=== PATIENT | female | born 1960 | race Caucasian/White ===

== ENCOUNTER 2023-02-01 02:44 | Emergency (ER) | payer MEDICAID, MEDICARE ==
[~2023-02-01] VITALS: Ht 167.6 cm; Wt 85.0 kg
[2023-02-01] MEDS ORDERED: LORAZEPAM 2MG/ML CPJ IV STA (07:22)
[2023-02-01] MEDS ORDERED: SODIUM CHLORIDE 0.9% 1,000 ML IV ONE (07:30)
[2023-02-01] MEDS ORDERED: DIPHENHYDRAMINE 50MG/ML VIAL IM ONE (07:45)
[2023-02-01] MEDS ORDERED: HALOPERIDOL LACTATE 5MG/ML VIAL IM ONE (07:45)
[2023-02-01] MEDS ORDERED: LORAZEPAM 2MG/ML CPJ IM ONE (07:45)
[2023-02-01 10:23] LABS: BASOPHILS % 0.6 % (0.0-2.0); EOSINOPHILS % 1.5 % (0.0-5.0); HEMATOCRIT. 42.5 % (36.0-48.0); HEMOGLOBIN. 13.7 g/dL (12.0-16.0); MEAN CORPUSCULAR HEMOGLOBIN 26.8 pg (28.0-32.0); MEAN CORPUSCULAR VOLUME 83.4 fL (81.0-99.0); MEAN PLATELET VOLUME 8.1 fl (7.4-10.4); MONOCYTES % 6.2 % (2.0-8.0); NEUTROPHILS % 73.7 % (40.0-76.0); PLATELET 355 x1000/uL (130-400); RED CELL DISTRIBUTION WIDTH 14.1 % (11.6-14.6)
[2023-02-01 10:36] LABS: CHLORIDE 109 mEq/L (98-107)
[2023-02-01 10:43] LABS: ETHANOL BLOOD < 10 mg/dL
[2023-02-01 10:44] LABS: CLARITY URINE CLEAR (CLEAR); COLOR URINE DARK YELLOW (YELLOW); KETONES URINE TRACE (NEGATIVE); LEUKOCYTE ESTERASE URINE 2+ (NEGATIVE); NITRITE URINE NEGATIVE (NEGATIVE); OCCULT BLOOD URINE NEGATIVE (NEGATIVE); PROTEIN URINE TRACE (NEGATIVE); SPECIFIC GRAVITY URINE 1.034 (1.005-1.030)
[2023-02-01 11:11] LABS: *AMPHETAMINES SCREEN URINE PRESUMTIVE POSITIVE (NEGATIVE); *BARBITURATES SCREEN URINE NEGATIVE (NEGATIVE); *BENZODIAZEPINES SCREEN URINE NEGATIVE (NEGATIVE); *COCAINE SCREEN URINE NEGATIVE (NEGATIVE); CANNABINOID URINE SCREEN PRESUMTIVE POSITIVE (NEGATIVE); METHADONE URINE SCREEN NEGATIVE (NEGATIVE); OPIATES URINE SCREEN NEGATIVE (NEGATIVE); PHENCYCLIDINE URINE SCREEN PRESUMTIVE POSITIVE (NEGATIVE)
[2023-02-02 14:00] VITALS: BP 136/72
== END 2023-02-02 14:20 | disposition home or self-care (01) ==
LOC: ER 03:08
DX: G92.9 Unspecified toxic encephalopathy (principal); F29 Unspecified psychosis not due to a substance or known physiological condition; F22 Delusional disorders; F19.10 Other psychoactive substance abuse, uncomplicated; R45.851 Suicidal ideations; F17.210 Nicotine dependence, cigarettes, uncomplicated; Z20.822 Contact with and (suspected) exposure to COVID-19
CPT/HCPCS: 36415; 80053; 80305; 80307; 80320; 80329; 81003; 85025; 87426; 96360; 96361; 96372; 99285; C9803; J1200; J1630; J2060; J7030; Z7610; G0480

== ENCOUNTER 2023-02-02 21:56 | Emergency (ER) | payer MEDICAID ==
[~2023-02-02] VITALS: Ht 162.6 cm; Wt 91.0 kg
[2023-02-02 22:07] VITALS: BP 129/53
== END 2023-02-02 23:08 | disposition home or self-care (01) ==
LOC: ER 21:56
DX: F41.9 Anxiety disorder, unspecified (principal); J45.909 Unspecified asthma, uncomplicated; Z59.00 Homelessness unspecified; Z86.11 Personal history of tuberculosis
CPT/HCPCS: 99283

== ENCOUNTER 2023-02-03 00:20 | Emergency (ER) | payer MEDICAID ==
[~2023-02-03] VITALS: Ht 154.9 cm; Wt 98.9 kg
[2023-02-03 00:27] VITALS: BP 118/45
[2023-02-03] MEDS ORDERED: LORAZEPAM 1MG TABLET PO ONE (05:30)
== END 2023-02-03 09:24 | disposition home or self-care (01) ==
LOC: ER 00:20
DX: F41.9 Anxiety disorder, unspecified (principal); J45.909 Unspecified asthma, uncomplicated; F15.10 Other stimulant abuse, uncomplicated
CPT/HCPCS: 99283

== ENCOUNTER 2023-09-12 22:23 | Emergency (ER) | payer OTHER ==
[~2023-09-12] VITALS: Ht 170.2 cm; Wt 85.0 kg
[2023-09-12] MEDS ORDERED: LORAZEPAM 1MG TABLET PO NR (22:45)
[2023-09-13 00:17] LABS: BASOPHILS % 0.4 % (0.0-2.0); DIFFERENTIAL COMMENT 1; EOSINOPHILS % 0.4 % (0.0-5.0); HEMATOCRIT. 38.4 % (36.0-48.0); HEMOGLOBIN. 12.3 g/dL (12.0-16.0); LYMPHOCYTES % 14.5 % (20.0-50.0); MEAN CORPUSCULAR HEMOGLOBIN 26.7 pg (28.0-32.0); MEAN CORPUSCULAR HGB CONC 31.9 g/dL (31.0-37.0); MEAN CORPUSCULAR VOLUME 83.7 fL (81.0-99.0); MEAN PLATELET VOLUME 7.4 fl (7.4-10.4); MONOCYTES % 6.7 % (2.0-8.0); PLATELET 277 x1000/uL (130-400); RED BLOOD CELL COUNT 4.59 mill/uL (4.2-5.4); WHITE BLOOD COUNT 13.9 x1000/uL (4.5-11.0)
[2023-09-13 00:22] LABS: CHLORIDE 111 mEq/L (98-107); INDEX HEMOLYSI 1 (1-3); INDEX ICTERIC 1 (1-4); INDEX LIPEMIC 1 (1-3); POTASSIUM 3.6 mEq/L (3.5-5.1); SODIUM 141 mEq/L (136-145)
[2023-09-13 00:31] LABS: ACETAMINOPHEN <2 ug/mL ug/mL (10-30); ALANINE AMINOTRANSFERASE 34 IU/L (13-61); ALBUMIN 3.9 g/dL (3.4-5.0); ASPARTATE AMINOTRANSFERASE 38 IU/L (15-37); BILIRUBIN TOTAL 0.5 mg/dL (0.1-1.0); CALCIUM 8.7 mg/dL (8.5-10.1); CARBON DIOXIDE 24 mEq/L (21-32); CREATININE 0.8 mg/dL (0.6-1.3); ETHANOL BLOOD < 10 mg/dL (<10); GLUCOSE 87 mg/dL (70-105); PROTEIN TOTAL 7.5 g/dL (6.0-8.3); UREA NITROGEN BLOOD 21 mg/dL (7-21)
[2023-09-13] MEDS ORDERED: BACITRACIN 14GM TUBE TOP NR (01:45)
[2023-09-13] MEDS ORDERED: HALOPERIDOL LACTATE 5MG/ML VIAL IM ONE (04:30)
[2023-09-13] MEDS ORDERED: DIPHENHYDRAMINE 50MG/ML VIAL IM ONE (04:30)
[2023-09-13 11:30] VITALS: BP 142/80; PULSE 80; RESP 16; TEMP 98.5
== END 2023-09-13 13:46 | disposition home or self-care (01) ==
LOC: ER 23:26
DX: F29 Unspecified psychosis not due to a substance or known physiological condition (principal); S50.311A Abrasion of right elbow, initial encounter; F17.200 Nicotine dependence, unspecified, uncomplicated; F15.10 Other stimulant abuse, uncomplicated; Z00.00 Encounter for general adult medical examination without abnormal findings; X58.XXXA Exposure to other specified factors, initial encounter; Y93.89 Activity, other specified; Y92.89 Other specified places as the place of occurrence of the external cause; Y99.8 Other external cause status
CPT/HCPCS: 80053; 80307; 80329; 80320; 85025; 36415; 99285; 96372; J1200; J1630; G0480

== ENCOUNTER 2023-09-13 17:21 | Emergency (ER) | payer OTHER ==
[~2023-09-13] VITALS: Ht 165.1 cm; Wt 91.0 kg
[2023-09-13 17:24] VITALS: BP 152/87; PULSE 104; RESP 18; TEMP 98.5; O2SAT 99
== END 2023-09-13 20:57 | disposition left against medical advice (07) ==
LOC: ER 17:50
DX: R21 Rash and other nonspecific skin eruption (principal); Z53.21 Procedure and treatment not carried out due to patient leaving prior to being seen by health care provider
CPT/HCPCS: 99281

== ENCOUNTER 2024-03-19 05:42 | Emergency (ER) | payer MEDICARE, OTHER ==
[~2024-03-19] VITALS: Ht 165.1 cm; Wt 89.0 kg
[2024-03-19 05:49] VITALS: O2SAT 100
[2024-03-19] MEDS: OLANZAPINE 10 MG/VIAL IM STA (07:12)
[2024-03-19 08:30] LABS: CHLORIDE 109 mEq/L (98-107); POTASSIUM 3.7 mEq/L (3.5-5.1); SODIUM 139 mEq/L (136-145)
[2024-03-19 08:31] LABS: CALCIUM 9.7 mg/dL (8.7-10.4); CARBON DIOXIDE 23 mEq/L (21-32)
[2024-03-19 08:35] LABS: CREATININE 0.7 mg/dL (0.6-1.0)
[2024-03-19 08:36] LABS: GLUCOSE 106 mg/dL (70-105); UREA NITROGEN BLOOD 16 mg/dL (9-23)
[2024-03-19 08:41] LABS: ETHANOL BLOOD < 10 mg/dL (<10); THYROID STIMULATING HORMONE 1.85 uIU/mL (0.55-4.78)
[2024-03-19 08:47] LABS: BASOPHILS % 1.2 % (0.0-2.0); EOSINOPHILS % 0.8 % (0.0-5.0); HEMATOCRIT. 41.6 % (36.0-48.0); HEMOGLOBIN. 13.5 g/dL (12.0-16.0); LYMPHOCYTES % 15.3 % (20.0-50.0); MEAN CORPUSCULAR HEMOGLOBIN 27.4 pg (28.0-32.0); MEAN CORPUSCULAR HGB CONC 32.4 g/dL (31.0-37.0); MEAN CORPUSCULAR VOLUME 84.6 fL (81.0-99.0); MEAN PLATELET VOLUME 7.7 fl (7.4-10.4); MONOCYTES % 5.7 % (2.0-8.0); PLATELET 296 x1000/uL (130-400); RED BLOOD CELL COUNT 4.92 mill/uL (4.2-5.4); RED CELL DISTRIBUTION WIDTH 13.8 % (11.6-14.6); WHITE BLOOD COUNT 13.5 x1000/uL (4.5-11.0)
[2024-03-19] MEDS: DIPHENHYDRAMINE 50MG/ML VIAL IM STA (10:11)
[2024-03-19] MEDS: LORAZEPAM 2MG/ML INJ IM ONE (10:12)
[2024-03-19] MEDS: HALOPERIDOL LACTATE 5MG/ML VIAL IM ONE (10:13)
[2024-03-19] MEDS: DIPHENHYDRAMINE 50MG/ML VIAL IM NR (15:00)
[2024-03-19] MEDS: LORAZEPAM 2MG/ML INJ IM NR (15:00)
[2024-03-19] MEDS: HALOPERIDOL LACTATE 5MG/ML VIAL IM NR (17:00)
[2024-03-20 10:30] VITALS: BP 137/72; PULSE 72; RESP 18; TEMP 98.6
== END 2024-03-20 11:00 ==
LOC: ER 05:42
DX: R41.82 Altered mental status, unspecified (principal); R45.1 Restlessness and agitation; F15.10 Other stimulant abuse, uncomplicated; Z20.822 Contact with and (suspected) exposure to COVID-19
CPT/HCPCS: 80048; 80307; 80329; 80320; 84443; 85025; 36415; 96372; 99285; 87426; J3490; J1200; J1630; J2060; Z7610 ×4; G0480

== ENCOUNTER 2024-04-01 14:40 | Emergency (ER) | payer MEDICARE ==
[~2024-04-01] VITALS: Ht 167.6 cm; Wt 80.0 kg
[2024-04-01] MEDS: DIPHENHYDRAMINE 50MG/ML VIAL IM STA (16:37)
[2024-04-01] MEDS: LORAZEPAM 2MG/ML INJ IM ONE (16:37)
[2024-04-01] MEDS: HALOPERIDOL LACTATE 5MG/ML VIAL IM ONE (16:37)
[2024-04-01 17:45] VITALS: O2SAT 98
[2024-04-01 19:41] LABS: BASOPHILS % 0.6 % (0.0-2.0); EOSINOPHILS % 1.5 % (0.0-5.0); HEMATOCRIT. 40.2 % (36.0-48.0); HEMOGLOBIN. 12.7 g/dL (12.0-16.0); LYMPHOCYTES % 25.9 % (20.0-50.0); MEAN CORPUSCULAR HEMOGLOBIN 27.5 pg (28.0-32.0); MEAN CORPUSCULAR HGB CONC 31.7 g/dL (31.0-37.0); MEAN CORPUSCULAR VOLUME 86.8 fL (81.0-99.0); MEAN PLATELET VOLUME 7.7 fl (7.4-10.4); MONOCYTES % 10.3 % (2.0-8.0); NEUTROPHILS % 61.7 % (40.0-76.0); PLATELET 294 x1000/uL (130-400); RED BLOOD CELL COUNT 4.63 mill/uL (4.2-5.4); RED CELL DISTRIBUTION WIDTH 14.1 % (11.6-14.6); WHITE BLOOD COUNT 13.3 x1000/uL (4.5-11.0)
[2024-04-01 19:45] LABS: CHLORIDE 111 mEq/L (98-107); POTASSIUM 4.3 mEq/L (3.5-5.1); SODIUM 143 mEq/L (136-145)
[2024-04-01 19:46] LABS: CARBON DIOXIDE 27 mEq/L (21-32)
[2024-04-01 19:51] LABS: CREATININE 0.7 mg/dL (0.6-1.0); ETHANOL BLOOD < 10 mg/dL (<10); GLUCOSE 85 mg/dL (70-105); UREA NITROGEN BLOOD 13 mg/dL (9-23)
[2024-04-01 19:53] LABS: ACETAMINOPHEN < 2 ug/mL (10-30)
[2024-04-02 01:14] LABS: CLARITY URINE CLEAR (CLEAR); COLOR URINE YELLOW (YELLOW); GLUCOSE URINE NEGATIVE (NEGATIVE); KETONES URINE 1+ (NEGATIVE); LEUKOCYTE ESTERASE URINE NEGATIVE (NEGATIVE); NITRITE URINE NEGATIVE (NEGATIVE); OCCULT BLOOD URINE NEGATIVE (NEGATIVE); PROTEIN URINE NEGATIVE (NEGATIVE); SPECIFIC GRAVITY URINE 1.023 (1.005-1.030)
[2024-04-02 01:21] LABS: *AMPHETAMINES SCREEN URINE PRESUMPTIVE POSITIVE (NEGATIVE)
[2024-04-02 01:22] LABS: *BARBITURATES SCREEN URINE NEGATIVE (NEGATIVE); *BENZODIAZEPINES SCREEN URINE NEGATIVE (NEGATIVE); *COCAINE SCREEN URINE NEGATIVE (NEGATIVE); CANNABINOID URINE SCREEN PRESUMPTIVE POSITIVE (NEGATIVE); ECSTASY MDMA SCREEN URINE NEGATIVE (NEGATIVE); METHADONE URINE SCREEN NEGATIVE (NEGATIVE); OPIATES URINE SCREEN NEGATIVE (NEGATIVE); PHENCYCLIDINE URINE SCREEN PRESUMTIVE POSITIVE (NEGATIVE)
[2024-04-02] MEDS: OLANZAPINE 5MG TABLET ODT PO SCH (18:02)
[2024-04-03] MEDS: OLANZAPINE 10 MG/VIAL IM ONE (08:31)
[2024-04-03] MEDS: LORAZEPAM 2MG/ML INJ IM ONE (08:31)
[2024-04-03 16:26] VITALS: BP 140/82; PULSE 80; RESP 14; TEMP 98.2
== END 2024-04-03 17:05 ==
LOC: ER 14:40
DX: R44.0 Auditory hallucinations (principal); Z20.822 Contact with and (suspected) exposure to COVID-19
CPT/HCPCS: 80305; 80048; 81003; 81025; 80307; 80329; 80320; 85025; 36415; 96372; 99291; 87426; J1200; J1630; J2060 ×2; Z7610 ×3; J3490; 99285; G0480

== ENCOUNTER 2024-07-27 20:22 | Emergency (ER) | payer MEDICARE ==
[~2024-07-27] VITALS: Ht 162.6 cm; Wt 73.0 kg
[2024-07-27 20:25] VITALS: BP 100/67; PULSE 105; RESP 18; TEMP 98.4; O2SAT 100
[2024-07-27] MEDS ORDERED: MORPHINE SULFATE 4 MG/ML INJ (FOR IV/IM USE) IV ONE (23:45)
[2024-07-28] MEDS: TETANUS, DIPHTHERIA, PERTUSSIS VAC/PF 0.5ML (>10YR OLD) IM ONE
[2024-07-28] MEDS: MORPHINE SULFATE 4 MG/ML INJ (FOR IV/IM USE) IM ONE (01:30)
[2024-07-28] MEDS ORDERED: CEPH500T MT ×2 (01:34→09:06)
[2024-07-28] MEDS: SODIUM CHLORIDE 0.9% 1,000 ML IV ONE (01:44)
[2024-07-28] MEDS ORDERED: BO1 TP (09:06)
== END 2024-07-28 02:15 | disposition home or self-care (01) ==
LOC: ER 20:22
DX: T24.202A Burn of second degree of unspecified site of left lower limb, except ankle and foot, initial encounter (principal); R45.1 Restlessness and agitation; X11.8XXA Contact with other hot tap-water, initial encounter; Y93.89 Activity, other specified; Y92.89 Other specified places as the place of occurrence of the external cause; Y99.8 Other external cause status
CPT/HCPCS: 16020; 99283; J7030; Z7610 ×2

== ENCOUNTER 2024-07-28 02:32 | Emergency (ER) | payer MEDICARE ==
[~2024-07-28] VITALS: Ht 162.6 cm; Wt 108.0 kg
[~2024-07-28 02:32] MED LIST: CEPH500T MT
[2024-07-28 02:45] VITALS: BP 121/83; PULSE 99; RESP 15; TEMP 99.1; O2SAT 99
[2024-07-28] MEDS: BACITRACIN 14GM TUBE TOP ONE (09:01)
[2024-07-28] MEDS: BACITRACIN ZINC OINT UDPKT TOP ONE (09:01)
[2024-07-28] MEDS ORDERED: CEPH500T MT (09:06)
[2024-07-28] MEDS ORDERED: BO1 TP (09:06)
== END 2024-07-28 13:28 | disposition home or self-care (01) ==
LOC: ER 02:32
DX: T24.212A Burn of second degree of left thigh, initial encounter (principal); F19.90 Other psychoactive substance use, unspecified, uncomplicated; X58.XXXA Exposure to other specified factors, initial encounter; Y93.89 Activity, other specified; Y92.89 Other specified places as the place of occurrence of the external cause; Y99.8 Other external cause status
CPT/HCPCS: 16000; 99283; Z7610 ×2

== ENCOUNTER 2025-06-28 01:44 | Emergency (ER) | payer MEDICARE, OTHER ==
[~2025-06-28] VITALS: Ht 170.2 cm; Wt 114.0 kg
[~2025-06-28 01:44] MED LIST changes: +BO1 TP
[2025-06-28] MEDS: ALBUTEROL (0.083%) 2.5MG/3ML NEB HHN SCH (03:50)
[2025-06-28] MEDS: IPRATROPIUM BROMIDE (0.02%) 0.5MG/2.5ML NEB HHN SCH (03:50)
[2025-06-28 03:55] LABS: CREATININE 0.8 mg/dL (0.6-1.0); UREA NITROGEN BLOOD 18 mg/dL (9-23)
[2025-06-28 03:56] LABS: TROPONIN I HIGH SENSITIVITY < 4 ng/L (3.0-34)
[2025-06-28 04:04] LABS: BASOPHILS % 0.4 % (0.0-2.0); EOSINOPHILS % 3.8 % (0.0-5.0); HEMATOCRIT. 43.4 % (36.0-48.0); HEMOGLOBIN. 13.7 g/dL (12.0-16.0); LYMPHOCYTES % 20.8 % (20.0-50.0); MEAN PLATELET VOLUME 8.2 fl (7.4-10.4); MONOCYTES % 7.2 % (2.0-8.0); NEUTROPHILS % 67.8 % (40.0-76.0); PLATELET 324 x1000/uL (130-400); RED BLOOD CELL COUNT 5.20 mill/uL (4.2-5.4); RED CELL DISTRIBUTION WIDTH 14.2 % (11.6-14.6)
[2025-06-28] MEDS: SODIUM CHLORIDE 0.9% 1,000 ML IV ONE (04:46)
[2025-06-28] MEDS: METHYLPREDNISOLONE SOD SUCC 125MG/2ML (ACT-O-VIAL) IV ONE (04:46)
[2025-06-28] MEDS: MAGNESIUM 2 G PREMIX 50 ML IV ONE (04:46)
[2025-06-28 05:00] VITALS: PULSE 84; RESP 18; O2SAT 100
[2025-06-28 05:20] VITALS: PULSE 79; RESP 18; O2SAT 100
[2025-06-28 05:40] VITALS: PULSE 85; RESP 18; O2SAT 100
[2025-06-28 05:50] LABS: TROPONIN I HIGH SENSITIVITY < 4 ng/L (3.0-34)
[2025-06-28 07:10] VITALS: BP 136/62; PULSE 91; RESP 15; TEMP 36.7; O2SAT 96
== END 2025-06-28 09:52 | disposition left against medical advice (07) ==
LOC: ER 02:02 → EDBEDREQ 05:19 → EDBEDREQTM 05:19 → CANBEDREQ 09:09 → ER 09:52
DX: J45.901 Unspecified asthma with (acute) exacerbation (principal); J96.91 Respiratory failure, unspecified with hypoxia; F17.210 Nicotine dependence, cigarettes, uncomplicated; I44.4 Left anterior fascicular block; I49.1 Atrial premature depolarization
CPT/HCPCS: 99291; 96365; 96366; 96375; 80048; 83880; 83735; 85025; 84484; 36415; 71045; 94640; 93005; J2919; J3475; J7030; 94070; 94664